=== PATIENT | male | born 1990 | race Caucasian/White ===

== ENCOUNTER 2021-10-02 19:34 | Observation (INO) ==
[2021-10-02] MEDS ORDERED: Insulin Regular, Human 100 UNIT/ML SUBQ ONE (20:03)
[2021-10-02] MEDS ORDERED: 0.9 % Sodium Chloride 1,000 ML IVC ONE ×2 (20:03→21:18)
[2021-10-02 20:08] LABS: Basophils # 0.1 K/mcL (0.0-0.2); Basophils % 0.5 %; Eosinophils # 0.1 K/mcL (0.0-0.6); Eosinophils % 0.9 %; Immature Granulocytes % 0.3 % (0-4); Lymphocytes # 2.3 K/mcL (0.6-4.6); Lymphocytes % 21.7 %; Mean Corpuscular HGB Conc 35.6 g/dL (31.6-35.5); Mean Corpuscular Volume 84.4 fL (83.0-100.0); Mean Platelet Volume 10.7 fL (9.4-12.4); Monocytes # 0.4 K/mcL (0.0-1.3); Monocytes % 4.2 %; Neutrophils # 7.6 K/mcL (1.6-8.9); Platelet Count 267 K/mcL (140-400); Red Blood Count 5.33 M/mcL (4.19-5.50); Red Cell Distribution Width 11.9 % (11.5-14.5); Segmented Neutrophils % 72.4 %; White Blood Count 10.5 K/mcL (4.3-11.1)
[2021-10-02] MEDS: 0.9 % Sodium Chloride 1,000 ML IVC SCH (20:12)
[2021-10-02 20:25] LABS: VBG HCO3 25 mEq/L (21-27); VBG PCO2 42 mmHg (41-51); VBG PH 7.38 pH Units (7.32-7.42); VBG PO2 81 mmHg (25-50)
[2021-10-02 20:37] LABS: BUN/Creatinine Ratio 13 (6-26); Blood Urea Nitrogen 15 mg/dL (6-20); Calcium 9.8 mg/dL (8.6-10.3); Carbon Dioxide 24 mEq/L (23-29); Chloride 87 mEq/L (98-107); Glucose 866 mg/dL (70-105); Osmolality,Calculated 299 (280-300); Potassium 4.3 mEq/L (3.5-5.1); Sodium 123 mEq/L (136-145); eGFR For African Americans > 60 (> 60); eGFR For Non-African Americans > 60 (> 60)
[2021-10-02] MEDS ORDERED: D5% in Water 1,000 ML IVC PRN (21:19)
[2021-10-02] MEDS ORDERED: *HR* Dextrose 50 % in Water (Syg) 50 ML SYRINGE IVP PRN (21:19)
[2021-10-02] MEDS ORDERED: Dextrose Gel 15 GM/37.5 ML TUBE PO PRN ×2 (21:19)
[2021-10-02] MEDS ORDERED: Insulin DETEMIR 100 UNIT/ML X5UNITS SUBQ SCH (21:20)
[2021-10-02] MEDS ORDERED: Insulin LISPRO 300 UNITS/3 ML VIAL SUBQ ONE ×2 (21:22→21:24)
[2021-10-02 21:49] LABS: Bilirubin,Urine Negative (Negative); Blood,Urine Trace-intact (Negative); Clarity,Urine Clear (Clear); Glucose,Urine (UA) >=1000 mg/dL (Normal); Ketones,Urine Trace mg/dL (Negative); Leukocyte Esterase,Urine Negative (Negative); Nitrite,Urine Negative (Negative); PH,Urine 6.5 pH Units (5.0-8.0); Protein,Urine Negative (Neg-Trace); Specific Gravity,Urine <= 1.005 (1.010-1.025); Urobilinogen,Urine Normal (Normal)
[2021-10-02 21:55] LABS: Color,Urine Straw (Yellow)
[2021-10-02 21:57] LABS: Bacteria,Urine Few per hpf (None-Few); RBC,Urine 0-3 per hpf (0-3)
[2021-10-02] MEDS: Insulin DETEMIR 100 UNIT/ML per UNIT SUBQ SCH (23:29)
[2021-10-03 00:28] LABS: BUN/Creatinine Ratio 12 (6-26); Blood Urea Nitrogen 13 mg/dL (6-20); Carbon Dioxide 28 mEq/L (23-29); Chloride 94 mEq/L (98-107); Glucose 411 mg/dL (70-105); Osmolality,Calculated 287 (280-300); Potassium 3.8 mEq/L (3.5-5.1); Sodium 130 mEq/L (136-145); eGFR For African Americans > 60 (> 60); eGFR For Non-African Americans > 60 (> 60)
[2021-10-03] MEDS: 0.9 % Sodium Chloride 1,000 ML IVC SCH ×3 (01:25→21:13)
[2021-10-03] MEDS: Insulin LISPRO 300 UNITS/3 ML VIAL SUBQ SCH ×2 (08:01→12:11)
[2021-10-03] MEDS ORDERED: Insulin DETEMIR 100 UNIT/ML X5UNITS SUBQ SCH (09:30)
[2021-10-03] MEDS: GlipiZIDE 5 MG TABLET PO SCH ×2 (13:03→16:55)
[2021-10-03] MEDS: *HR* Metformin 500 MG TABLET PO SCH ×2 (13:03→16:55)
[2021-10-03 15:11] LABS: Estimated Average Glucose 217 mg/dl; Hemoglobin A1C 9.2 %
[2021-10-03 15:48] LABS: Chol/HDL Ratio 8.6 (0-4.9)
[2021-10-03 16:04] LABS: Thyroid Stimulating Hormone 4.007 mcIU/mL (0.340-5.600)
[2021-10-03] MEDS ORDERED: Insulin LISPRO 300 UNITS/3 ML VIAL SUBQ SCH (21:00)
[2021-10-04 01:36] VITALS: RESP 16; TEMP 97.5
[2021-10-04] MEDS ORDERED: Melatonin 3 MG TABLET PO SCH (02:00)
[2021-10-04] MEDS: 0.9 % Sodium Chloride 1,000 ML IVC SCH (04:52)
[2021-10-04 07:20] VITALS: BP 117/77; PULSE 80; O2SAT 96
[2021-10-04] MEDS: Insulin DETEMIR 100 UNIT/ML per UNIT SUBQ SCH (07:31)
[2021-10-04 07:48] LABS: Hemoglobin 13.3 g/dL (12.9-16.9); Mean Corpuscular Hemoglobin 30.4 pg (28.0-33.3); Mean Platelet Volume 10.3 fL (9.4-12.4); Platelet Count 205 K/mcL (140-400); Red Blood Count 4.37 M/mcL (4.19-5.50); Red Cell Distribution Width 12.3 % (11.5-14.5); White Blood Count 6.2 K/mcL (4.3-11.1)
[2021-10-04 08:08] LABS: BUN/Creatinine Ratio 14 (6-26); Blood Urea Nitrogen 11 mg/dL (6-20); Calcium 8.6 mg/dL (8.6-10.3); Carbon Dioxide 28 mEq/L (23-29); Chloride 105 mEq/L (98-107); Glucose 188 mg/dL (70-105); Osmolality,Calculated 288 (280-300); Sodium 137 mEq/L (136-145); eGFR For African Americans > 60 (> 60); eGFR For Non-African Americans > 60 (> 60)
[2021-10-04] MEDS: GlipiZIDE 5 MG TABLET PO SCH (08:52)
[2021-10-04] MEDS: *HR* Metformin 500 MG TABLET PO SCH (08:52)
== END 2021-10-04 16:45 | disposition home or self-care (01) ==
LOC: SUPCPDRO → EMEROOPIK 19:34 → INPPIK 19:34
PROVIDERS: ADMIT Internal Medicine; ATTEND Internal Medicine